=== PATIENT | female | born 1945 | race Caucasian/White ===

== ENCOUNTER → 2016-03-30 | Day surgery (SDC) | payer MEDICARE ==
[~2016-03-30] MED LIST: AREDS PO; ASPI-110 PO; B-COCAP9 PO; BILB150C PO; BUPIVACAINE HCL PF 0.5% 30 ML VIAL ONE; CALC600T25 PO; CHOL50008 PO; FISH1000 PO; LISI20TA PO; LUTE25CA PO; METO50TA11 PO; OMEP20TA PO; PROBCAP11 PO; PROPOFOL 200 MG/20 ML AMP IV ONE; REFR0.5D4 EACH EYE; TRAM50TA PO; TRIAMCINOLONE ACETONIDE 40 MG/ML VIAL I-ARTICULR ONE; VIT PO; methylPREDNISolone ACETATE 40 MG/ML VIAL I-ARTICULR ONE
--- NOTE | 2016-04-06 00:09 | M6 ---
cc: MARY RAUSCH M.D. DATE: 03/30/2016 DATE OF : 1945 PROCEDURE Fluoroscopically guided injection bilateral sacroiliac joints. History and physical was completed and signed. Consent was signed. Procedure site was marked. Medications were listed and reconciled. Pain score was recorded. Allergies were noted. Time out was taken. Fluoroscopy time was recorded where applicable. Sedation was administered or directed by Dr. Rausch. The patient was given oxygen. The patient was monitored by a registered nurse. Total procedure time was greater than 15 minutes. PROCEDURE NOTE: IV was started, blood pressure cuff, pulse oximeter and EKG were applied. The patient was placed in the prone position on a Herbert table sedated with small amounts of propofol titrated to effect. Vital signs were monitored and remained stable throughout the procedure. Sacral area was prepped with alcohol and 10% Betadine solution and draped with sterile drapes. Fluoroscopy was used shooting from medial to lateral to clearly visualize the posterior joint line of the bilateral sacroiliac joints. Separate sterile 5-inch 22-gauge spinal needles were advanced into these joints under fluoroscopic guidance. There was negative aspiration for blood or any other type of fluid, and at each location the patient was given 2 mL of 0.5% Marcaine 20 mg of Depo-Medrol and 20 mg of Kenalog. Following the procedure the patient was taken to the recovery room with stable vital signs neurologically intact. W. MD BEBA Miranda/RAGHU /10:40 AM /11:56 PM
== END | disposition home or self-care (01) ==
LOC: PHSDC 08:41
PROVIDERS: ATTEND Pain Medicine Interventional Pain Medicine
DX: M54.5 Low back pain (principal)
CPT/HCPCS: 99152; G0260; J1030; J3301; 27096

== ENCOUNTER → 2016-12-14 | Day surgery (SDC) | payer MEDICARE ==
[~2016-12-14] MED LIST changes: -BUPIVACAINE HCL PF 0.5% 30 ML VIAL ONE; +BUPIVACAINE LIPOSOME PF 1.3% 20 ML VIAL ONE; +BUPIVACAINE/EPINEPHRINE 0.25% 50 ML VIAL ONE; +LACTATED RINGER'S 1000 ML INJ 1,000 ML ONE; +MIDAZOLAM HCL 2 MG/2 ML VIAL ONE; +ONDANSETRON HCL 4 MG/2 ML VIAL IV PUSH ONE; +SODIUM CHLORIDE 0.9% INJ 0 ML ONE; -TRIAMCINOLONE ACETONIDE 40 MG/ML VIAL I-ARTICULR ONE; +ceFAZolin 2 GM PREMIX 50 ML ONE; -methylPREDNISolone ACETATE 40 MG/ML VIAL I-ARTICULR ONE
--- NOTE | 2016-12-14 17:22 | TN ---
cc: DAY CRAWLEY DATE OF SURGERY: 12/14/2016 PREOPERATIVE DIAGNOSIS Left breast invasive ductal carcinoma. POSTOPERATIVE DIAGNOSIS: Left breast invasive ductal carcinoma. PROCEDURE 1. Left breast needle localized lumpectomy. 2. Left axillary sentinel lymph node biopsy. 3. Left breast intraoperative radiation. SURGEON: Day Crawley MD. RETAIL ZONE SPECIALIST: TIM Hammonds BLOOD LOSS Less than 50 cc. FINDINGS 1. Few small hot nonpalpable left axillary lymph nodes. Intraoperative consultation with the radiologist showed complete excision of the mass on ultrasound. 2. Good placement of a size 4.0 Zeiss intraoperative radiation probe and the lumpectomy cavity. INDICATIONS FOR PROCEDURE: The patient is a 71 year-old female who was diagnosed with an invasive ductal carcinoma on core biopsy for a BiRADS lesion found on screening mammogram. The patient is clinically node negative and was found to be a candidate for breast conservation surgery and intraoperative radiation therapy. The risks, benefits and alternatives were discussed with the patient and her family in detail prior to the procedure and agreed to undergo the procedure. TIM Hammonds, francesca was required during this procedure as x-ray assistance for retraction of the patient's breast tissue and due to her body habitus, and the complex nature of the intraoperative radiation procedure. DESCRIPTION OF PROCEDURE: The patient taken to the operating room, placed in supine position, placed under general anesthesia. The patient's left arm, breast and axilla were prepped and draped in sterile fashion. Time out was performed. The patient had undergone preoperative lymphoscintigraphy as well as needle localization on ultrasound. These were reviewed prior to the procedure. We performed the sentinel lymph node biopsy first and instilled local anesthetic below the left axillary hairline and excised this area with a 15 blade scalpel. We dissected with the Bovie electrocautery to the subcutaneous tissue and opened the clavipectoral fascia. We were able to place a self-retractor. We could palpate a few reacting lymph nodes. There were in the appropriate area for the lymph nodes of the breast and they were not on the neoprobe. These were excised as a packet of at least two continuous nodes with the Bovie electrocautery. These were passed off and sent as lymph node #1. There was no further activity in the axilla and no pathology noted on palpation of the axilla. We had excellent hemostasis spontaneously. We closed the clavipectoral fascia with a running 3-0 Vicryl suture. We closed the skin with 4-0 Monocryl and Dermabond. At this point in time we turned our attention to the lumpectomy procedure. The patient's needle location was such that the needle procedure from 1 o'clock in the breast, 8 cm from the nipple and almost straight posterior as the lesion was up against the chest wall. At this point in time I felt it was technically indicated to just take the needle site and extend this approximately 4 cm in horizontal incision on the breast. We did use local anesthetic at this site and excised this with a 15 blade scalpel followed by Bovie electrocautery. I used the needle as a guide and dissected down to the area of the tumor on the chest wall. We excised this completely using Bovie electrocautery. We marked with a short stitch superior and long lateral and we completely excised the lesion on ultrasound by intraoperatively radiology consultation. I did, at this point in time, due to the very small size of the lumpectomy cavity and small size of the lesion and due to the intraoperative radiation, wanted to ensure we had negative margins. We took approximately six additional margins, anterior, posterior, medial, lateral, superior and inferior, all using Metzenbaum scissors and marking the stitches with blue 4-0 Prolene sutures at the true margin. We had excellent use of Bovie electrocautery to gain some hemostasis. There was some small capillary bleeding around the area of the additional margins. We had incised the cavity. This appeared to be about 3.5 size probe and we placed the 3.5 probe and we noticed that this was a little too small for the lumpectomy cavity. We sized a 4.0 probe fit perfectly again up against the lumpectomy cavity and the chest wall. The posterior aspect of the lumpectomy was essentially within an area of tissue over the pectoralis fascia. Once we ensured this in place, we placed this according to recommendations on the probe and placed this into the patient on the [employer] IRT machine. This was confirmed to be in good position on ultrasound with our skin margins being extremely adequate. Dr. Sanchez Brown was immediately available and supervised the placement of the IRT machine. Please see separate documentation for the procedure. Once we tied a pursestring on the skin we immediately placed radiation shielding, the patient underwent IRT. After completion of IRT, the patient remained stable. We removed the IRT device and probe without difficulty. The cavity was inspected. There was no evidence of any bleeding or complication. We turned to our closure and closed this with deep dermal with 3-0 Vicryl, 4-0 Monocryl on the skin and Dermabond. The patient at this point in time was discontinued and she was taken to the PACU in stable condition. The patient tolerated the procedure well. No apparent complications. All counts were correct. I was present and scrubbed for the entire procedure. MD CARMEN Clemons/RAGHU /3:48 PM /4:48 PM
== END | disposition home or self-care (01) ==
LOC: ESDC 08:59
PROVIDERS: ATTEND Surgery
DX: C50.912 Malignant neoplasm of unspecified site of left female breast (principal)
CPT/HCPCS: 00400; 01610; 19125; 38525; 88307; J0690; J2250; J2405; J3010; J7120; 77290; 77300; 77334; 77370; 77424; 77469; C9290